=== PATIENT | male | born 1965 | race Caucasian/White ===

== ENCOUNTER 2016-11-09 15:06 | Inpatient (IN) | payer SELFPAY ==
[~2016-11-09] VITALS: Ht 167.6 cm; Wt 60.8 kg
[2016-11-09] MEDS ORDERED: SODIUM CHLORIDE 0.9% 1,000 ML IV ONE (15:18)
[2016-11-09] MEDS ORDERED: SODIUM CHLORIDE FLUSH 10ML SYR IVF ONE (15:30)
[2016-11-09] MEDS ORDERED: SODIUM CHLORIDE 0.9% 1,000ML IVBOLUS ONE ×2 (15:30→16:30)
[2016-11-09] MEDS ORDERED: LORazepam 2 MG/ML, 1ML IVPush ONE ×2 (15:30→17:00)
[2016-11-09] MEDS ORDERED: PLEASE ENTER ALLERGIES MC SCH ×2 (15:30)
[2016-11-09] MEDS ORDERED: LORazepam 2 MG/ML, 1ML ONE ×2 (15:47→16:42)
[2016-11-09 15:51] LABS: BLOOD UREA NITROGEN 25 mg/dL (7-18)
[2016-11-09 16:06] LABS: ASPARTATE AMINO TRANSFERASE 131 U/L (15-37)
[2016-11-09] MEDS ORDERED: POTASSIUM CHLORIDE 20 MEQ, MAGNESIUM SULFATE 1 GM, THIAMINE 100 MG, FOLIC ACID 1 MG, MV... IV SCH (17:00)
[2016-11-09 17:25] LABS: IS PT STATUS REG ER OR PRE ER? YES
[2016-11-09] MEDS ORDERED: hydrALAzine 20 MG/ML, 1ML IV PRN (17:30)
[2016-11-09] MEDS ORDERED: LORazepam 2 MG/ML, 1ML IV PRN ×3 (17:30)
[2016-11-09] MEDS ORDERED: ACETAMINOPHEN 325 MG TABLET PO PRN (17:30)
[2016-11-09] MEDS ORDERED: DOCUSATE 100 MG CAPSULE PO PRN (17:30)
[2016-11-09] MEDS ORDERED: BISACODYL 10 MG SUPP PR PRN (17:30)
[2016-11-09] MEDS ORDERED: ONDANSETRON 2MG/ML, 2ML IV PRN (17:30)
[2016-11-09 20:54] VITALS: BP 151/106
[2016-11-09] MEDS ORDERED: PNEUMOCOCCAL 23 VACCINE IM-VACC ONE (22:00)
[2016-11-09] MEDS: HEPARIN 5,000 UNITS/ML, 1ML SQ SCH (22:37)
[2016-11-09] MEDS: LORazepam 2 MG/ML, 1ML IV PRN (22:53)
[2016-11-09] MEDS: D5%-0.9% NACL 1,000 ML IV SCH (23:00)
[2016-11-09] MEDS: MVI ADULT 10 ML, FOLIC ACID 1 MG in D5%-0.9% NACL 1,000 ML IV SCH (23:22)
[2016-11-10] MEDS: LORazepam 2 MG/ML, 1ML IV PRN ×4 (01:30→16:42)
[2016-11-10 04:10] VITALS: BP 132/95
[2016-11-10] MEDS: D5%-0.9% NACL 1,000 ML IV SCH ×4 (05:38→22:13)
[2016-11-10] MEDS: HEPARIN 5,000 UNITS/ML, 1ML SQ SCH ×3 (05:40→22:14)
[2016-11-10 06:41] LABS: DAU SCREEN DISCLAIMER
[2016-11-10 06:45] LABS: ASPARTATE AMINO TRANSFERASE 89 U/L (15-37); BLOOD UREA NITROGEN 25 mg/dL (7-18)
[2016-11-10 08:50] VITALS: BP 110/72
[2016-11-10] MEDS: NICOTINE 7 MG/24 HR PATCH.TD24 TD SCH (13:30)
[2016-11-10 15:10] VITALS: BP 122/86
[2016-11-10 20:00] VITALS: BP 133/85
[2016-11-10] MEDS: MVI ADULT 10 ML, FOLIC ACID 1 MG in D5%-0.9% NACL 1,000 ML IV SCH (22:13)
[2016-11-11 00:24] VITALS: BP 143/91
[2016-11-11 05:41] LABS: BLOOD UREA NITROGEN 11 mg/dL (7-18)
[2016-11-11 05:44] LABS: ASPARTATE AMINO TRANSFERASE 43 U/L (15-37)
[2016-11-11] MEDS: D5%-0.9% NACL 1,000 ML IV SCH ×2 (05:45→12:25)
[2016-11-11] MEDS: HEPARIN 5,000 UNITS/ML, 1ML SQ SCH ×3 (05:45→22:00)
[2016-11-11 08:20] VITALS: BP 150/87
[2016-11-11] MEDS ORDERED: POTASSIUM PHOSPHATE 44 MEQ in SODIUM CHLORIDE 0.9% 500 ML IV ONE (09:30)
[2016-11-11] MEDS: FOLIC ACID 1 MG TABLET PO SCH (12:24)
[2016-11-11] MEDS: THIAMINE 100MG TABLET PO SCH (12:24)
[2016-11-11] MEDS: NICOTINE 7 MG/24 HR PATCH.TD24 TD SCH (12:25)
[2016-11-11 15:35] VITALS: BP 143/90
[2016-11-11 19:50] VITALS: BP 141/96
[2016-11-12 02:21] VITALS: BP 143/95
[2016-11-12] MEDS: D5%-0.9% NACL 1,000 ML IV SCH ×2 (03:02→10:00)
[2016-11-12 05:13] LABS: ASPARTATE AMINO TRANSFERASE 28 U/L (15-37); BLOOD UREA NITROGEN 6 mg/dL (7-18)
[2016-11-12] MEDS: HEPARIN 5,000 UNITS/ML, 1ML SQ SCH (06:00)
[2016-11-12] MEDS ORDERED: MULTIVITAMIN 1 TABLET PO SCH (09:00)
[2016-11-12] MEDS ORDERED: THIA100T6 PO (09:43)
[2016-11-12] MEDS ORDERED: NICO1PAT10 TD (09:43)
[2016-11-12] MEDS ORDERED: MULT1TAB60 PO (09:43)
[2016-11-12] MEDS ORDERED: FOLI-17 PO (09:43)
[2016-11-12] MEDS: FOLIC ACID 1 MG TABLET PO SCH (10:09)
[2016-11-12] MEDS: THIAMINE 100MG TABLET PO SCH (10:09)
[2016-11-12] MEDS ORDERED: PNEUMOCOCCAL 23 VACCINE IM-VACC ONE (11:00)
== END 2016-11-12 11:14 | disposition home or self-care (01) | DRG 683 ==
LOC: ED 16:50 → EDIP 16:51 → ED 16:59 → 4EST 20:27
PROVIDERS: ADMIT Internal Medicine; ATTEND Internal Medicine
DX: N17.9 Acute kidney failure, unspecified (principal); M62.82 Rhabdomyolysis; E86.0 Dehydration; F10.20 Alcohol dependence, uncomplicated; F15.10 Other stimulant abuse, uncomplicated; F17.210 Nicotine dependence, cigarettes, uncomplicated; D72.829 Elevated white blood cell count, unspecified; E87.6 Hypokalemia; E83.39 Other disorders of phosphorus metabolism; Z80.0 Family history of malignant neoplasm of digestive organs; Z59.0 Homelessness
CPT/HCPCS: 36415; 71010; 80053; 80307; 81001; 82550; 83735; 84100; 84439; 84443; 84484; 85025; 87040; 87086; 90732; 93005; 96374; 96376; J1644; J2405; J3411; J3475; J3480; J7042; J0360; J2060; J7030; J7040

== ENCOUNTER 2017-01-31 15:58 | Emergency (ER) | payer MEDICAID ==
[~2017-01-31] VITALS: Ht 167.6 cm; Wt 59.0 kg
[~2017-01-31 15:58] MED LIST: FOLI-17 PO; MULT1TAB60 PO; NICO1PAT10 TD; THIA100T6 PO
[2017-01-31 16:00] VITALS: BP 156/105
[2017-01-31] MEDS ORDERED: LIDOCAINE 1%, 20ML ONE ×2 (16:17→18:14)
[2017-01-31] MEDS ORDERED: LIDOCAINE 1%, 20ML INFIL ONE (16:30)
== END 2017-01-31 18:47 | disposition home or self-care (01) ==
LOC: ED 18:41
DX: L03.116 Cellulitis of left lower limb (principal); L03.115 Cellulitis of right lower limb; S90.852A Superficial foreign body, left foot, initial encounter; S90.851A Superficial foreign body, right foot, initial encounter; L03.90 Cellulitis, unspecified; X58.XXXA Exposure to other specified factors, initial encounter; Y93.89 Activity, other specified; Y99.8 Other external cause status; Y92.89 Other specified places as the place of occurrence of the external cause
CPT/HCPCS: 99283